=== PATIENT | female | born 1950 ===

== ENCOUNTER 2019-03-04 08:12 | Outpatient (CLI) | payer MEDICARE ==
--- NOTE | 2019-03-04 09:27 | Mammography Report ---
Reason: SCREENING MAMMO Procedure Date: 03/04/2019 Accession Number: [id number] / [id number] Procedure: [facility] - Screening Mammo w/[facility] CPT Code: FULL RESULT: EXAM: Screening Mammo w/[facility] DATE: 03/04/2019 8:55 AM CLINICAL HISTORY: Screening encounter. Ongoing hormone therapy since 1987. TECHNIQUE: (B) - Bilateral CC and MLO views were obtained. COMPARISON: New baseline mammogram, last mammogram reportedly over 30 years ago. PARENCHYMAL PATTERN: (A) - The breast(s) demonstrate(s) scattered fibroglandular densities. FINDINGS: There are coarse typically benign calcifications. There are no suspicious masses, calcifications, or areas of distortion. IMPRESSION: Benign findings. BI-RADS category 2. RECOMMENDATION: (ANNUAL) - Recommend routine annual screening mammography. BI-RADS CATEGORY: (2) - Benign Findings. STANDARD QUALIFYING STATEMENTS: 1. This examination was not reviewed with the aid of Computer-Aided Detection (CAD). 2. A negative or benign imaging report should not preclude biopsy if clinically suspicious findings are present. 3. Dense breasts may obscure an underlying neoplasm. 4. This examination was reviewed with the aid of 3D breast imaging (tomosynthesis).
== END 2019-03-04 08:13 | disposition home or self-care (01) ==
LOC: DI 08:12
PROVIDERS: ATTEND Internal Medicine
DX: Z12.31 Encounter for screening mammogram for malignant neoplasm of breast (principal)
CPT/HCPCS: 77063; 77067

== ENCOUNTER 2023-08-15 09:03 | Outpatient (CLI) | payer MEDICARE, OTHER ==
--- NOTE | 2023-08-15 18:53 | XRAY Report ---
PROCEDURE: Shoulder 3 View RT INDICATIONS: RIGHT SHOULDER PAIN TECHNIQUE: 3 views of the shoulder were acquired. COMPARISON: None FINDINGS: Bones: Total right shoulder arthroplasty in good position. No evidence of hardware failure or looseni ng. Suture anchors noted in the greater tuberosity. Right lung apex clear Soft tissues: No suspicious soft tissue calcifications. IMPRESSION: Total right shoulder arthroplasty in good position Reviewed by: Oc Peoples MD on 08/15/2023 5:51 PM AKDT Approved by: Oc Peoples MD on 08/15/2023 5:51 PM AKDT Station ID: [id number]
== END 2023-08-15 09:04 | disposition home or self-care (01) ==
LOC: DI 09:03
PROVIDERS: ATTEND Internal Medicine
DX: M25.511 Pain in right shoulder (principal); Z96.611 Presence of right artificial shoulder joint

== ENCOUNTER 2023-08-26 13:55 | Outpatient (CLI) | payer MEDICARE, OTHER ==
--- NOTE | 2023-08-27 15:06 | Mammography Report ---
BILATERAL DIGITAL SCREENING MAMMOGRAM 3D/2D: 08/26/2023 CLINICAL: Routine screening. Comparison is made to exam dated: 03/04/2019 mammogram - [facility]. There are scattered areas of fibroglandular density in both breasts (category b / 25%-50% glandular t issue). There is suboptimal positioning due to patient factors. However, the best possible images were obtain ed. No significant masses, calcifications, or other findings are seen in either breast. IMPRESSION: NEGATIVE There is no mammographic evidence of malignancy. A 1 year screening mammogram is recommended. Based on the Tyrer Cuzick model (a risk assessment model) the patients lifetime risk is 2.3% and her 10 year risk is 1.6%. According to the ACR, ACS, and NCCN guidelines, an annual breast MRI exam em g with mammogram is recommended if the patients lifetime risk is 20% or greater. This exam was interpreted at Station ID: [id number]. NOTE: For mammograms, a report in lay terms will be sent to the patient. Approximately 15% of breast malignancies will not be visualized mammographically. In the management of a palpable breast mass, a negative mammogram must not discourage biopsy of a clinically suspicious lesion. Electronically Signed By: Staci Womack M.D., PH.D eb/:08/26/2023 20:02:24 letter sent: No_Letter ACR BI-RADS Category 1: Negative 3341F PARENCHYMAL PATTERN: (A) - The breast(s) demonstrate(s) scattered fibroglandular densities. BI-RADS CATEGORY: (1) - 1 Mammogram [id number] 1 year screening LATERALITY: (B)
== END 2023-08-26 13:56 | disposition home or self-care (01) ==
LOC: DI 13:55
PROVIDERS: ATTEND Internal Medicine
DX: Z12.31 Encounter for screening mammogram for malignant neoplasm of breast (principal); R92.323 Mammographic fibroglandular density, bilateral breasts

== ENCOUNTER 2023-09-10 10:40 | Outpatient (CLI) | payer MEDICARE, OTHER ==
--- NOTE | 2023-09-10 15:23 | XRAY Report ---
PROCEDURE: Lumbar Spine Complete with oblique view INDICATIONS: BACK PAIN TECHNIQUE: 3 views of the lumbar spine were acquired including oblique views. COMPARISON: None. FINDINGS: Bones: 5 [id number] vertebrae are present. There is normal bony alignment. No vertebral body compression fractures. No suspicious bony lesions. Mild degenerative disc disease noted throughout t he lumbar spine. Mild L2-L3, L3-L4, L4-L5 and L5-S1 facet arthropathy. Soft tissues: Overlying bowel gas pattern is normal. No suspicious soft tissue calcifications. Rig ht pelvic neurostimulator with leads terminating in the lower thoracic spine. Cholecystectomy clips. Oblique: No pars defects. IMPRESSION Multilevel degenerative disc disease. Multilevel facet arthropathy. No fracture. No acute osseous lesion. If there is continued clinical concern for pathology, then MRI should be considered for further evaluation. Reviewed by: Gerri Tobin MD, PhD on 09/10/2023 3:21 PM PST Approved by: Gerri Tobin MD, PhD on 09/10/2023 3:21 PM PST Station ID: [id number]
== END 2023-09-10 10:41 | disposition home or self-care (01) ==
LOC: DI 10:40
PROVIDERS: ATTEND Physical Medicine & Rehabilitation
DX: M47.816 Spondylosis without myelopathy or radiculopathy, lumbar region (principal); M51.36 Other intervertebral disc degeneration, lumbar region